=== PATIENT | male | born 1965 | race Caucasian/White ===

== ENCOUNTER 2020-04-07 04:26 | Inpatient (IN) | payer SELFPAY ==
[2020-04-07] MEDS ORDERED: HYDROmorphone 0.5 MG/0.5 ML SYRINGE ONE (04:34)
[2020-04-07 05:39] LABS: SARS-CoV-2 NAA Rapid Test Not Detected (NotDetected)
[2020-04-07] MEDS ORDERED: Fentanyl 100 MCG/2 ML VIAL ONE ×4 (06:02→08:39)
[2020-04-07] MEDS ORDERED: Phenylephrine 10 MG/ML VIAL ONE (06:23)
[2020-04-07] MEDS ORDERED: ceFOXitin 1 GM VIAL ONE (06:54)
--- NOTE | 2020-04-07 07:11 | HP ---
CHIEF COMPLAINT: Abdominal pain. HISTORY OF PRESENT ILLNESS: The patient is a 55-year-old thin white male. He is apparently a homeless person, who lives in [place]. He smokes cigarettes, smokes marijuana, and uses crack cocaine on a daily basis. He presented to the emergency room in [place] when he had onset of severe abdominal pain sometime yesterday evening. CT scan revealed evidence of free air within the left upper abdomen consistent with perforated viscus. For reasons that are not clear to me, he was transferred here (rather than facilities that are closer to [place]). He was given IV fluids, IV antibiotics, and pain medication. I am consulted. PAST MEDICAL HISTORY: He denies any significant medical history. He tells me he did take something for back pain in the past. PAST SURGICAL HISTORY: He had nasal surgery in the past. MEDICATIONS: None (he stopped taking medication for his back as he did not want to become "immune" to them). ALLERGIES: NO KNOWN DRUG ALLERGIES. PERSONAL AND SOCIAL HISTORY: He is with two children. 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 He has been homeless for many years. He does not drink alcohol. He does smoke about two packs per day of cigarettes. As mentioned, he smokes marijuana and uses crack cocaine every day. REVIEW OF SYSTEMS: Otherwise unremarkable. FAMILY HISTORY: Noncontributory. PHYSICAL EXAMINATION: VITAL SIGNS: He is afebrile. Pulse is 90 after being given IV fluid, blood pressure is somewhat hypertensive. GENERAL: A thin white male, appearing older than his stated age. He is alert and appropriate. HEAD, EYES, EARS, NOSE, AND THROAT: Unremarkable. NECK: Supple. LUNGS: Clear to auscultation. CARDIAC: Regular rate and rhythm. ABDOMEN: Rigid. He cannot tolerate any significant abdominal examination. EXTREMITIES: Unremarkable. ASSESSMENT: The patient with an acute abdomen with what appears to be a perforated viscus. Based upon his CT scan, my guess would be that he has a perforated peptic ulcer, although the exact etiology of his GI perforation is not apparent at this time. I recommend urgent exploratory laparotomy and repair. I have discussed the operation in detail with the patient as well as potential risks. He understands and is enthusiastic to proceed. Job ID: [id number]
[2020-04-07] MEDS ORDERED: SUGAMMADEX SODIUM 500 MG/5 ML VIAL ONE (07:20)
[2020-04-07] MEDS ORDERED: Fluconazole In NaCl,Iso-Osm 200 MG in Premix Bag 1 BAG IVPB SCH (07:30)
[2020-04-07] MEDS ORDERED: Promethazine HCl 25 MG/ML VIAL ONE (08:01)
[2020-04-07] MEDS ORDERED: Non-Formulary Medication 1 EACH PO PRN (08:12)
[2020-04-07] MEDS ORDERED: HYDROmorphone 2 MG/ML VIAL SLOW IVP PRN (08:15)
[2020-04-07] MEDS ORDERED: Promethazine HCl 25 MG/ML VIAL IM/IV PRN (08:15)
[2020-04-07] MEDS ORDERED: Ondansetron HCl/PF 4 MG/2 ML Vial IVP PRN (08:15)
[2020-04-07] MEDS ORDERED: Meperidine HCl/PF 25 MG/ML VIAL SLOW IVP PRN (08:15)
[2020-04-07] MEDS ORDERED: hydrALAZINE 20 MG/ML VIAL ONE (08:22)
[2020-04-07] MEDS ORDERED: Dextrose 5% in Water 1,000 ML IV PRN (09:20)
[2020-04-07] MEDS ORDERED: Dextrose 50% Abboject 50 ML SYRINGE SLOW IVP PRN (09:20)
[2020-04-07] MEDS ORDERED: Lorazepam 2 MG/ML VIAL SLOW IVP PRN (09:20)
[2020-04-07] MEDS ORDERED: Ondansetron PF 4 MG/2 ML Vial IVP PRN (09:20)
[2020-04-07] MEDS ORDERED: Promethazine HCl 25 MG/ML VIAL IM PRN (09:20)
[2020-04-07] MEDS: D5 1/2 NS w/20 mEq KCL 1,000 ML IV SCH ×2 (09:38→21:09)
[2020-04-07] MEDS: Pantoprazole 40 MG VIAL IVP SCH ×2 (09:38→21:08)
[2020-04-07 10:41] VITALS: BMI 23.3
[2020-04-07] MEDS ORDERED: Lidocaine 1% PF 5 ML VIAL ONE (10:55)
[2020-04-07] MEDS ORDERED: Rocuronium Bromide 10 MG/ML (10ML VIAL) ONE (10:55)
[2020-04-07] MEDS ORDERED: Dexamethasone 20 MG/5 ML VIAL ONE (10:55)
[2020-04-07] MEDS ORDERED: PHENYLEPHRINE-NS 100 MCG/ML 10 ML SYRINGE ONE (10:55)
[2020-04-07] MEDS ORDERED: Succinylcholine 200 MG/10 ml SYRINGE FS ONE (10:55)
[2020-04-07] MEDS ORDERED: Ondansetron PF 4 MG/2 ML Vial ONE (10:55)
[2020-04-07] MEDS ORDERED: PROPOFOL 200 MG/20 ML VIAL ONE (10:55)
[2020-04-07] MEDS: Enoxaparin Sodium 40 MG/0.4 ML SYRINGE SC SCH (21:08)
[2020-04-07] MEDS: Morphine 4 MG/ML VIAL SLOW IVP PRN (21:43)
--- NOTE | 2020-04-08 00:31 | OP ---
DATE OF PROCEDURE: 04/07/2020 PREOPERATIVE DIAGNOSIS: Gastrointestinal tract perforation. POSTOPERATIVE DIAGNOSES: Gastrointestinal tract perforation same with finding of perforated pyloric channel ulcer. ANESTHESIA: General endotracheal. PROCEDURE PERFORMED: Repair of perforated pyloric channel ulcer with omental patch. INDICATIONS: The patient is a 55-year-old white male. He regularly uses illegal drugs as well as smokes 2 packs per day of cigarettes. He presented with acute onset of abdominal pain and free air within the abdomen. He is taken to the operating room at this time for exploration. DESCRIPTION OF OPERATION: Informed consent was obtained. Patient was taken to the operating room, where general endotracheal anesthesia was obtained with patient in supine position. Abdomen was prepped with ChloraPrep and draped in sterile fashion. A midline upper abdominal incision was created and dissection was carried through skin and subcutaneous tissue and the peritoneal cavity. There was noted to be a small amount of free air, but some cloudy free fluid in the upper abdomen. Cultures were obtained. There was noted to be a perforation on the anterior aspect of the pyloric channel. The duodenum was adherent to the gallbladder and these adhesions were mobilized carefully. The defect was defined in the anterior aspect of the pyloric channel. It was repaired with 3 interrupted sutures of 3-0 silk. I then obtained an omental patch based upon the lesser omentum. This was folded over the suture repair site and secured in place with 3 additional sutures of 3-0 silk. Nasogastric tube was positioned appropriately within the stomach. The abdominal cavity was irrigated with 3 L of warm saline and all irrigant was aspirated. The fascia was closed with running suture of looped #1 PDS. The wound was copiously irrigated and all irrigant was aspirated. Skin edges were approximated with skin garett. Dry gauze dressing was placed externally. There were no complications. The patient tolerated the procedure well and was taken to recovery room in stable condition. Job ID: [id number]
[2020-04-08] MEDS: D5 1/2 NS w/20 mEq KCL 1,000 ML IV SCH ×3 (02:40→15:51)
[2020-04-08] MEDS: Morphine 4 MG/ML VIAL SLOW IVP PRN ×4 (03:53→23:19)
[2020-04-08 05:49] LABS: Anion Gap 10 mmol/L (10-20); BUN (Urea Nitrogen) 13 mg/dL (8.4-25.7); Calc. Creatinine Clearance 78 mL/min (70-130); Calcium 8.6 mg/dL (7.8-10.44); Carbon Dioxide 24 mmol/L (22-29); Chloride 103 mmol/L (98-107); Glucose 105 mg/dL (70-105); Potassium 4.2 mmol/L (3.5-5.1); Sodium 133 mmol/L (136-145)
[2020-04-08 06:12] LABS: #Lymphocytes 1.3 thou/uL (1.20-3.40); #Monocytes 0.7 thou/uL (0.11-0.59); #Neutrophils 10.5 thou/uL (1.40-6.50); %Basophils 0.3 % (0.0-1.0); %Eosinophils 0.2 % (0.0-10.0); %Monocytes 5.5 % (0.0-10.0); %Neutrophils 83.9 % (42.0-75.0); Hemoglobin 13.2 g/dL (14.0-18.0); Hypochromia SLIGHT = 6-15 cells (100X) (0-5/hpf); MDiff Complete? YES; Mean Corpuscular HGB CONC 29.9 g/dL (32.0-36.0); Mean Corpuscular Hemoglobin 29.1 pg (27.0-31.0); Mean Corpuscular Volume 97.4 fL (78.0-98.0); Mean Platelet Volume 7.2 fL (7.4-10.4); Platelet Count 239 thou/uL (130-400); Platelet Morphology Comment Appears Adequate; RBC Distribution Width 12.2 % (11.5-14.5); Red Blood Cell (RBC) Count 4.53 mill/uL (4.70-6.10); White Blood Cell (WBC) Count 12.6 thou/uL (4.8-10.8)
[2020-04-08] MEDS: Fluconazole In NaCl,Iso-Osm 200 MG in Premix Bag 1 BAG IVPB SCH (08:24)
[2020-04-08] MEDS: Pantoprazole 40 MG VIAL IVP SCH ×2 (08:25→20:26)
[2020-04-08] MEDS: hydrALAZINE 20 MG/ML VIAL SLOW IVP PRN ×2 (09:15→17:18)
[2020-04-08] MEDS ORDERED: CEFOXITIN IVPB SCH (12:00)
[2020-04-08] MEDS ORDERED: cefOXitin Sodium 1 GM in Sodium Chloride 0.9% 100 ML IVPB SCH (12:00)
[2020-04-08] MEDS: cefOXitin Sodium/Dextrose,Iso 1 GM in Premix Bag 1 BAG IVPB SCH ×3 (12:23→23:50)
[2020-04-08] MEDS: Morphine 2 MG/ML VIAL SLOW IVP PRN (12:59)
[2020-04-08] MEDS ORDERED: hydrALAZINE 20 MG/ML VIAL SLOW IVP SCH (18:30)
[2020-04-08] MEDS: Enoxaparin Sodium 40 MG/0.4 ML SYRINGE SC SCH (20:26)
[2020-04-08] MEDS ORDERED: Lorazepam 2 MG/ML VIAL SLOW IVP SCH (21:00)
[2020-04-09] MEDS: cefOXitin Sodium/Dextrose,Iso 1 GM in Premix Bag 1 BAG IVPB SCH (05:13)
[2020-04-09] MEDS: D5 1/2 NS w/20 mEq KCL 1,000 ML IV SCH ×2 (05:14→11:31)
--- NOTE | 2020-04-09 06:23 | PRG ---
DATE OF SERVICE: 04/08/2020 SUBJECTIVE: Mr. Mora is postoperative day #1, following laparotomy and repair of perforated pyloric channel ulcer. He is resting in bed on the surgical floor. Nasogastric tube is in place and functioning appropriately. The patient complains of appropriate abdominal pain. He has not ambulated significantly in the samson yet. He shows early signs of agitation this morning (on April 08), but is not disoriented. PHYSICAL EXAMINATION: VITAL SIGNS: He is afebrile. Pulse is slightly elevated at around 100. Blood pressure remains elevated at about 160/100. LUNGS: Clear to auscultation. ABDOMEN: His abdominal dressing is intact. Bowel sounds are not appreciated. He has appropriate abdominal tenderness. LABORATORY DATA: CBC showed hemoglobin of 13.2 with white blood cell count of 12.6. Electrolytes were unremarkable. ASSESSMENT: The patient is stable following repair of perforated ulcer. I would like to leave the nasogastric tube in because he has evidence of persistent ileus, which is not surprising. Hopefully, we will be able to remove this tomorrow. I have encouraged him to ambulate. He can continue to take ice chips. I am also concerned regarding his mental status as he has a history of daily cocaine use as well as cigarette abuse and marijuana use. Job ID: [id number]
[2020-04-09 07:37] LABS: Mean Corpuscular Hemoglobin 32.5 pg (27.0-31.0); Mean Corpuscular Volume 95.6 fL (78.0-98.0); Mean Platelet Volume 6.7 fL (7.4-10.4); Platelet Count 243 thou/uL (130-400); Red Blood Cell (RBC) Count 4.62 mill/uL (4.70-6.10)
[2020-04-09 07:55] LABS: Anion Gap 14 mmol/L (10-20); BUN (Urea Nitrogen) 10 mg/dL (8.4-25.7); Calc. Creatinine Clearance 78 mL/min (70-130); Calcium 8.9 mg/dL (7.8-10.44); Carbon Dioxide 21 mmol/L (22-29); Chloride 100 mmol/L (98-107); Glucose 112 mg/dL (70-105); Potassium 4.1 mmol/L (3.5-5.1); Sodium 131 mmol/L (136-145)
[2020-04-09 08:14] LABS: Band 28 % (5-11); Lymphocytes 1 % (21-51); MDiff Complete? YES; Monocytes 3 % (0-10); Neutrophil 66 % (42-75); Platelet Morphology Comment Appears Adequate; Polychromasia SLIGHT = 2-3 cells (100X) (0-2/hpf); Reactive Lymphocytes 2 % (0-10); Small Platelets SLIGHT
[2020-04-09] MEDS: Ziprasidone 20 MG CAP PO SCH ×2 (09:24→20:13)
[2020-04-09] MEDS: Pantoprazole 40 MG VIAL IVP SCH ×2 (09:25→20:14)
[2020-04-09] MEDS: Fluconazole In NaCl,Iso-Osm 200 MG in Premix Bag 1 BAG IVPB SCH (09:25)
[2020-04-09 10:22] LABS: Hemoglobin A1c 5.2 % (4.0-6.0)
[2020-04-09] MEDS: Propranolol 40 MG TAB PO SCH ×2 (10:25→20:14)
[2020-04-09] MEDS: Folic Acid 1 MG TAB PO SCH (10:25)
[2020-04-09] MEDS: Thiamine 100 MG TAB PO SCH (10:25)
[2020-04-09 10:26] LABS: Acetaminophen Less than 6.0 mcg/mL (10.0-30.0); Alcohol Less than 10 mg/dL (Less than 10); Cardiac Risk 3.1 (Less than 4.5); Cholesterol 116 mg/dl (< 200 Desired); HDL Cholesterol 38 mg/dL (>60 Neg Risk); LDL Cholesterol, Calculated 64 mg/dL; Salicylate Less than 8.0 mg/dL (15.0-30.0); Triglycerides 70 mg/dL (Less than 150)
[2020-04-09] MEDS: metroNIDAZOLE 500 MG in Premix Bag 1 BAG IVPB SCH ×2 (11:31→18:33)
--- NOTE | 2020-04-09 11:46 | CON ---
DATE OF CONSULTATION: 04/09/2020 REASON FOR CONSULTATION: Medical management. HISTORY OF PRESENT ILLNESS: This is a 55-year-old gentleman, who looks malnourished and also a homeless person in [place] with extensive past medical history of tobacco abuse, crack cocaine and marijuana drug abuse, was brought to the emergency room because of complaints of abdominal pain where he was evaluated with a CT of the abdomen showing evidence of free air within the left upper abdomen consistent with a perforated viscus. The patient was transferred to [place] for evaluation of this and was taken to [facility] on 04/07/2020, where the patient was found to have a perforated pyloric channel ulcer and this was eventually repaired with an omental patch. Postsurgically, the patient did well, though he was sick-looking with a hemoglobin being stable. No current complaints of chest pain, shortness of breath, fever, rigors, chills, nausea, vomiting, diaphoresis, blurring of vision, tingling, numbness, burning micturition, constipation, claudication, anxiety, depression, hematuria, hematochezia, cough, expectoration, syncope, seizures, PND, or orthopnea has been noted at this point of time. The patient has extensive medical noncompliance and is a homeless person and no prior history or follow ups or any other documentation in regard to his health are available and according to the patient not present. PAST MEDICAL HISTORY: Drug abuse. SOCIAL HISTORY: Patient smokes tobacco cigarettes almost one to two packs a day for many years. Abuses crack cocaine and marijuana . I presume the patient also abuses extensive alcohol. SURGERIES: Status post duodenal ulcer omental patch repair. FAMILY HISTORY: Unavailable. VACCINATION HISTORY: Unavailable. REVIEW OF SYSTEMS: Except as documented, all systems reviewed and negative. PHYSICAL EXAMINATION: GENERAL: This is a 55-year-old male gentleman lying in his hospital bed. The patient is alert, oriented, complaining of a postsurgical pain. Has an airway, which is clear. VITAL SIGNS: Currently has a temperature of 100 degrees Fahrenheit, heart rate of 104 per minute, respiratory rate of 18 per minute, saturation 97% on 4 L of oxygen, blood pressure 130/79 mmHg. HEENT: Atraumatic, normocephalic. NECK: Supple. No bruit. No lymphadenopathy. CVS: S1, S2. No abnormal rhythms or murmurs. Sinus tachycardia noted. CHEST: Bilateral air entry present. No rhonchi. No wheeze. ABDOMEN: Soft, has postsurgical bandage. EXTREMITIES: No cyanosis, no icterus, no pallor. No edema. NEUROLOGIC: The patient is alert, oriented x3. No focal motor or sensory deficits noted heme no ecchymosis or petechiae psych no depression or anxiety noted. DIAGNOSTICS: WBC is 13.0, hemoglobin 15.0, hematocrit 44.2, platelets are 243. Sodium 131, potassium 4.1, chloride 100, carbon dioxide 21, BUN 10, creatinine 0.95, glucose 112. COVID-19 rapid testing negative. Blood cultures, no growth noted from abdominal fluid. ASSESSMENT: 1. Acute abdominal pain with a diagnosis of duodenal ulcer perforation, status post omental patch repair by Dr. Kramer. The patient currently has postsurgical care. Awaiting bowel function return. 2. Extensive drug abuse with marijuana as well as crack cocaine, have authorized for blood drug screen at this point of time. 3. Likely suspected sepsis, intraabdominal in origin. I will start the patient on IV Zosyn for broader spectrum of coverage as well as Flagyl at this point of time and closely monitor. 4. Alcohol abuse. I have started the patient on folic acid and thiamine with continuation of IV fluids. 5. Intractable nausea and vomiting. 6. Medical noncompliance. PLAN: Discussed in detail of the diagnosis, treatment, and followup with the patient. I reviewed with [facility] at this point of time. We will do a CBC, CMP evaluation. We will discontinue current antibiotics and start the patient on a broad-spectrum antibiotic to include Zosyn and add Flagyl to the patient's antibiotic regimen. The patient is a very sick looking gentleman at this point of time with history of medical noncompliance and secondary to intraabdominal surgery and infection. I will obtain blood cultures for further review. I will also do blood drug screen for the patient and await official review. I will also order an echocardiogram evaluation including ordering lipid panel and hemoglobin A1c. Discharge planning will depend on ruling out sepsis along with reviewing echocardiogram and clearance from [facility]. I thank Dr. Kramer for referring the patient to the hospitalist team for medical management. We will follow the patient along with you. Advance directives are full code. The patient's family members phone data are not available, working on that with social services designee at this point of time. Job ID: [id number] [facility]
[2020-04-09] MEDS: Piperacillin/Tazobactam 4.5 GM in Sodium Chloride 0.9% 100 ML IVPB SCH ×3 (12:45→23:43)
[2020-04-09] MEDS: Nicotine 21 MG PATCH TD SCH (17:56)
[2020-04-09] MEDS: Enoxaparin Sodium 40 MG/0.4 ML SYRINGE SC SCH (20:13)
[2020-04-10] MEDS: D5 1/2 NS w/20 mEq KCL 1,000 ML IV SCH ×3 (02:55→11:45)
[2020-04-10] MEDS: metroNIDAZOLE 500 MG in Premix Bag 1 BAG IVPB SCH ×3 (02:55→18:39)
[2020-04-10] MEDS: Morphine 2 MG/ML VIAL SLOW IVP PRN (02:56)
[2020-04-10 05:24] LABS: #Basophils 0.1 thou/uL (0.0-0.2); #Eosinphils 0.3 thou/uL (0.0-0.7); #Lymphocytes 1.1 thou/uL (1.20-3.40); #Monocytes 0.5 thou/uL (0.11-0.59); #Neutrophils 8.2 thou/uL (1.40-6.50); %Basophils 0.8 % (0.0-1.0); %Eosinophils 3.2 % (0.0-10.0); %Monocytes 5.3 % (0.0-10.0); %Neutrophils 79.8 % (42.0-75.0); Hemoglobin 13.5 g/dL (14.0-18.0); Mean Corpuscular HGB CONC 33.7 g/dL (32.0-36.0); Mean Corpuscular Hemoglobin 32.5 pg (27.0-31.0); Mean Corpuscular Volume 96.5 fL (78.0-98.0); Mean Platelet Volume 7.2 fL (7.4-10.4); Platelet Count 274 thou/uL (130-400); Red Blood Cell (RBC) Count 4.16 mill/uL (4.70-6.10); White Blood Cell (WBC) Count 10.3 thou/uL (4.8-10.8)
[2020-04-10 05:27] LABS: ALT (SGPT) 10 U/L (8-55); AST (SGOT) 16 U/L (5-34); Albumin 3.4 g/dL (3.5-5.0); Alkaline Phosphatase 50 U/L (40-110); Anion Gap 12 mmol/L (10-20); BUN (Urea Nitrogen) 21 mg/dL (8.4-25.7); Bilirubin, Total 0.7 mg/dL (0.2-1.2); Calc. Creatinine Clearance 67 mL/min (70-130); Calcium 8.9 mg/dL (7.8-10.44); Carbon Dioxide 22 mmol/L (22-29); Chloride 104 mmol/L (98-107); Globulin 3.1 g/dL (2.4-3.5); Glucose 98 mg/dL (70-105); Potassium 3.9 mmol/L (3.5-5.1); Protein, Total 6.5 g/dL (6.0-8.3); Sodium 134 mmol/L (136-145)
[2020-04-10] MEDS: Piperacillin/Tazobactam 4.5 GM in Sodium Chloride 0.9% 100 ML IVPB SCH ×5 (05:49→23:22)
[2020-04-10] MEDS: Fluconazole In NaCl,Iso-Osm 200 MG in Premix Bag 1 BAG IVPB SCH (09:28)
[2020-04-10] MEDS: Ziprasidone 20 MG CAP PO SCH ×2 (09:29→20:24)
[2020-04-10] MEDS: Propranolol 40 MG TAB PO SCH ×2 (09:29→20:23)
[2020-04-10] MEDS: Pantoprazole 40 MG VIAL IVP SCH ×2 (09:29→20:24)
[2020-04-10] MEDS: Folic Acid 1 MG TAB PO SCH (09:30)
[2020-04-10] MEDS: Thiamine 100 MG TAB PO SCH (09:30)
--- NOTE | 2020-04-10 14:54 | PDOC.HOSPP ---
- Subjective Encounter Date: 04/10/20 Encounter Time: 14:52 Subjective: Mr. Mora was seen today in follow-up of duodenal ulcer with perforation. He does not have any complaints. He denies abdominal pain, He says he wants to try some solid food. - Objective Vital Signs & Weight: Vital Signs (12 hours) Temp Pulse Resp BP Pulse Ox 04/10/20 11:16 97.4 F L 62 18 124/80 96 04/10/20 07:51 97.6 F 78 16 145/95 H 95 04/10/20 07:11 85 16 96 04/10/20 05:00 95 04/10/20 02:59 70 16 96 04/10/20 02:53 97.7 F 76 18 118/68 89 L Weight Weight 140 lb I&O: 04/09/20 04/10/20 04/11/20 06:59 06:59 06:59 Intake Total 1860 1680 Output Total 3100 1400 Balance -1240 280 Result Diagrams: 04/10/20 04:44 04/10/20 04:44 Hospitalist ROS - Medication Medications: Active Medications Generic Name Dose Route Start Last Admin Trade Name Freq PRN Reason Stop Dose Admin Albuterol/Ipratropium 3 ml 04/07/20 12:30 04/10/20 12:30 Ipratropium/Albuterol Sulfate 3 Ml Neb NEB 3 ml TID-RT MINOR Administration Enoxaparin Sodium 40 mg 04/07/20 21:00 04/09/20 20:13 Enoxaparin Sodium 40 Mg/0.4 Ml Syringe SC 40 mg 2100 MINOR Administration Folic Acid 1 mg 04/09/20 09:00 04/10/20 09:30 Folic Acid 1 Mg Tab PO 1 mg DAILY MINOR Administration Hydralazine HCl 10 mg 04/07/20 09:20 04/08/20 17:18 Hydralazine 20 Mg/Ml Vial SLOW IVP 10 mg Q4H PRN Administration SBP > 170 or DBP > 100 Potassium Chloride/Dextrose/Sod Cl 1,000 mls @ 120 mls/hr 04/07/20 09:20 04/10/20 11:45 D5 1/2 Ns W/20 Meq Kcl IV 1,000 mls .Q8H20M MINOR Administration Fluconazole/Sodium Chloride 100 mls @ 100 mls/hr 04/08/20 09:00 04/10/20 09:28 200 mg/ Device IVPB 100 mls DAILY MINOR Administration Piperacillin Sod/Tazobactam 100 mls @ 200 mls/hr 04/09/20 12:00 04/10/20 12:45 Sod 4.5 gm/ Sodium Chloride IVPB 100 mls Q6HR MINOR Administration Metronidazole 500 mg/ Device 100 mls @ 100 mls/hr 04/09/20 11:00 04/10/20 11:41 IVPB 100 mls 0300,1100,1900 MINOR Administration Lorazepam 2 mg 04/07/20 09:20 04/08/20 15:51 Lorazepam 2 Mg/Ml Vial SLOW IVP 2 mg Q6H PRN Administration Anxiety/Agitation Morphine Sulfate 2 mg 04/07/20 09:20 04/10/20 02:56 Morphine 2 Mg/Ml Vial SLOW IVP 2 mg Q2H PRN Administration Mild Pain (1-3) Morphine Sulfate 4 mg 04/07/20 09:20 04/08/20 23:19 Morphine 4 Mg/Ml Vial SLOW IVP 4 mg Q2H PRN Administration Moderate Pain (4-6) Nicotine 21 mg 04/09/20 18:00 04/09/20 17:56 Nicotine 21 Mg Patch TD 21 mg 1800 MINOR Administration Pantoprazole Sodium 40 mg 04/07/20 09:00 04/10/20 09:29 Pantoprazole 40 Mg Vial IVP 40 mg Q12HR MINOR Administration Propranolol HCl 40 mg 04/09/20 09:00 04/10/20 09:29 Propranolol 40 Mg Tab PO 40 mg BID MINOR Administration Sodium Chloride 10 ml 04/07/20 09:00 04/10/20 09:30 Flush - Normal Saline 10 Ml Syringe IVF 10 ml Q12HR MINOR Administration Thiamine HCl 100 mg 04/09/20 09:00 04/10/20 09:30 Thiamine 100 Mg Tab PO 100 mg DAILY MINOR Administration Ziprasidone 40 mg 04/09/20 09:00 04/10/20 09:29 Ziprasidone 20 Mg Cap PO 40 mg BID MINOR Administration Hospitalist Exam Vitals: Vital Signs (12 hours) Temp Pulse Resp BP Pulse Ox 04/10/20 11:16 97.4 F L 62 18 124/80 96 04/10/20 07:51 97.6 F 78 16 145/95 H 95 04/10/20 07:11 85 16 96 04/10/20 05:00 95 04/10/20 02:59 70 16 96 04/10/20 02:53 97.7 F 76 18 118/68 89 L Weight Weight 140 lb General Appearance: NAD, awake alert, ill appearing General - other findings: very thin and frail Eye: PERRL, anicteric sclera ENT: normocephalic atraumatic, no oropharyngeal lesions Heart: RRR, no murmur, no gallops, no rubs, normal peripheral pulses Respiratory: CTAB, no wheezes, no rales, no ronchi, normal chest expansion, no tachypnea, normal percussion Gastrointestinal: soft, non-tender, non-distended (bowel sounds are quiet), no guarding, no rigidity Extremities: no cyanosis, no edema Hosp A/P (1) Duodenal ulcer, perforated Code(s): K26.5 - CHRONIC OR UNSPECIFIED DUODENAL ULCER WITH PERFORATION Status: Acute (2) Polysubstance abuse Code(s): F19.10 - OTHER PSYCHOACTIVE SUBSTANCE ABUSE, UNCOMPLICATED Status: Acute (3) Peritonitis Code(s): K65.9 - PERITONITIS, UNSPECIFIED Status: Acute - Plan * Duodenal ulcer with perforation- he is s/p repair of the ulcer, with Omental patch * Continue Protonix * Peritonitis- continue Zosyn, Flagyl, and Diflucan * Polysubstance abuse- CM consult has been placed, and discharge planning is in progress
--- NOTE | 2020-04-10 15:38 | PRG ---
DATE OF SERVICE: 04/10/2020 SUBJECTIVE: Mr. Mora is postoperative day #3 from laparotomy and repair of pyloric channel ulcer. Yesterday, he was becoming agitated. He was very tachycardic and confused. I suspected that he had cocaine withdrawal. I started him on Geodon to help with his agitation and confusion and propranolol. His tachycardia has resolved and his heart rate today is in the 60s to 80s. Blood pressure is currently 124/80. I also started him on a nicotine patch as he is a habitual 2 pack-a-day smoker. Today, he is much more lucid, calm, and interactive. He seems to feel better. He also has bowel sounds and had a bowel movement today. I therefore start him on a clear liquid diet. OBJECTIVE: VITAL SIGNS: On examination today, he is afebrile, pulse 62, blood pressure 124/80. LUNGS: Clear to auscultation. ABDOMEN: Soft and minimally tender. He still has peng in his upper midline incision. Bowel sounds are present and appear to be normoactive. LABORATORY DATA: His hemoglobin is stable at 13.5, white blood cell count is down to normal at 10.3. His chemistry panel reveals normal electrolytes. His albumin is a little bit low at 3.4. His serology does reveal elevated H pylori IgG antibody. This will need to be addressed after discharge. ASSESSMENT AND PLAN: He is doing well following surgery. I will advance him to a clear liquid diet today. I anticipate he will be able to advance to a full liquid diet tomorrow. Once he is tolerating this, he had to be able to be discharged to home. His peng should be removed tomorrow when he is postoperative day #4. Unfortunately, he is homeless. I am uncertain what discharge planning will look like for him. We need to discharge him to some sort of a temporary facility, then this may need to be delayed until Monday (today is Monday). Dr. Perez will be covering for me over the weekend. Job ID: [id number]
[2020-04-10] MEDS: Nicotine 21 MG PATCH TD SCH (18:39)
[2020-04-10] MEDS: Enoxaparin Sodium 40 MG/0.4 ML SYRINGE SC SCH (20:23)
[2020-04-11] MEDS ORDERED: Lorazepam 2 MG/ML VIAL IM PRN ×2 (00:02→00:18)
[2020-04-11] MEDS: D5 1/2 NS w/20 mEq KCL 1,000 ML IV SCH ×3 (00:15→08:19)
[2020-04-11] MEDS: metroNIDAZOLE 500 MG in Premix Bag 1 BAG IVPB SCH (03:32)
[2020-04-11] MEDS: Piperacillin/Tazobactam 4.5 GM in Sodium Chloride 0.9% 100 ML IVPB SCH (05:31)
[2020-04-11] MEDS: Doxycycline 100 MG CAP PO SCH ×2 (08:54→20:12)
[2020-04-11] MEDS: Thiamine 100 MG TAB PO SCH (08:54)
[2020-04-11] MEDS: Folic Acid 1 MG TAB PO SCH (08:54)
[2020-04-11] MEDS: Fluconazole 100 MG TAB PO SCH (08:54)
[2020-04-11] MEDS: Ziprasidone 20 MG CAP PO SCH ×2 (08:55→20:12)
[2020-04-11] MEDS: Propranolol 40 MG TAB PO SCH ×2 (08:55→20:12)
--- NOTE | 2020-04-11 11:27 | PRG ---
DATE OF SERVICE: 04/11/2020 SUBJECTIVE: Earlier this morning, the patient left against medical advice. However, about an hour later he came back up, because it was cold. Currently, he is not in his room. I cannot evaluate him. Somebody said he might be down the lobby looking for cigarettes. I do not know where he is. Apparently, he is afebrile, pulse 80, blood pressure 153/93. I cannot do a physical exam, but the nurse reports that the he had a bowel movement and he is tolerating full liquids, so I am not sure, if he still in the hospital or if he has left AMA again. Job ID: [id number]
--- NOTE | 2020-04-11 16:53 | PDOC.HOSPP ---
- Subjective Encounter Date: 04/11/20 Encounter Time: 16:51 Subjective: Mr. Mora was seen today in follow-up of perforated duodenal ulcer, post repair. He is now back in his room. He notes some soreness in his abdomen when he lays on the left side. He did not have any trouble eating a full liquid diet, and wants to try something more solid. - Objective Vital Signs & Weight: Vital Signs (12 hours) Temp Pulse Resp BP Pulse Ox 04/11/20 16:00 99 04/11/20 13:45 80 20 100 04/11/20 12:00 95 04/11/20 11:27 97.5 F L 81 16 151/100 H 95 04/11/20 10:30 97.6 F 76 20 159/95 H 87 L 04/11/20 07:13 80 18 98 Weight Weight 140 lb I&O: 04/10/20 04/11/20 04/12/20 06:59 06:59 06:59 Intake Total 1680 3180 Output Total 1400 Balance 280 3180 Result Diagrams: 04/10/20 04:44 04/10/20 04:44 Hospitalist ROS - Medication Medications: Active Medications Generic Name Dose Route Start Last Admin Trade Name Freq PRN Reason Stop Dose Admin Albuterol/Ipratropium 3 ml 04/07/20 12:30 04/11/20 13:45 Ipratropium/Albuterol Sulfate 3 Ml Neb NEB 3 ml TID-RT MINOR Administration Doxycycline Hyclate 100 mg 04/11/20 09:00 04/11/20 08:54 Doxycycline 100 Mg Cap PO 100 mg BID MINOR Administration Enoxaparin Sodium 40 mg 04/07/20 21:00 04/10/20 20:23 Enoxaparin Sodium 40 Mg/0.4 Ml Syringe SC 40 mg 2100 MINOR Administration Fluconazole 200 mg 04/11/20 09:00 04/11/20 08:54 Fluconazole 100 Mg Tab PO 200 mg DAILY MINOR Administration Folic Acid 1 mg 04/09/20 09:00 04/11/20 08:54 Folic Acid 1 Mg Tab PO 1 mg DAILY MINOR Administration Hydralazine HCl 10 mg 04/07/20 09:20 04/08/20 17:18 Hydralazine 20 Mg/Ml Vial SLOW IVP 10 mg Q4H PRN Administration SBP > 170 or DBP > 100 Potassium Chloride/Dextrose/Sod Cl 1,000 mls @ 50 mls/hr 04/11/20 07:00 04/11/20 08:19 D5 1/2 Ns W/20 Meq Kcl IV Not Given .Q20H MINOR Lorazepam 2 mg 04/07/20 09:20 04/08/20 15:51 Lorazepam 2 Mg/Ml Vial SLOW IVP 2 mg Q6H PRN Administration Anxiety/Agitation Morphine Sulfate 2 mg 04/07/20 09:20 04/10/20 02:56 Morphine 2 Mg/Ml Vial SLOW IVP 2 mg Q2H PRN Administration Mild Pain (1-3) Morphine Sulfate 4 mg 04/07/20 09:20 04/08/20 23:19 Morphine 4 Mg/Ml Vial SLOW IVP 4 mg Q2H PRN Administration Moderate Pain (4-6) Nicotine 21 mg 04/09/20 18:00 04/10/20 18:39 Nicotine 21 Mg Patch TD Not Given 1800 [facility] Pantoprazole Sodium 40 mg 04/11/20 09:00 04/11/20 08:55 Pantoprazole 40 Mg Tab PO 40 mg DAILY MINOR Administration Propranolol HCl 40 mg 04/09/20 09:00 04/11/20 08:55 Propranolol 40 Mg Tab PO 40 mg BID MINOR Administration Sodium Chloride 10 ml 04/07/20 09:00 04/11/20 10:09 Flush - Normal Saline 10 Ml Syringe IVF Not Given Q12HR [facility] Thiamine HCl 100 mg 04/09/20 09:00 04/11/20 08:54 Thiamine 100 Mg Tab PO 100 mg DAILY MINOR Administration Ziprasidone 40 mg 04/09/20 09:00 04/11/20 08:55 Ziprasidone 20 Mg Cap PO 40 mg BID MINOR Administration Hospitalist Exam Vitals: Vital Signs (12 hours) Temp Pulse Resp BP Pulse Ox 04/11/20 16:00 99 04/11/20 13:45 80 20 100 04/11/20 12:00 95 04/11/20 11:27 97.5 F L 81 16 151/100 H 95 04/11/20 10:30 97.6 F 76 20 159/95 H 87 L 04/11/20 07:13 80 18 98 Weight Weight 140 lb Eye: PERRL, anicteric sclera Heart: RRR, no murmur, no gallops, no rubs Respiratory: CTAB, no wheezes, no rales, no ronchi, normal chest expansion, no tachypnea, normal percussion Gastrointestinal: soft, non-tender, non-distended, normal bowel sounds, no palpable masses, no hepatomegaly Extremities: no cyanosis, no edema Hosp A/P (1) Duodenal ulcer, perforated Code(s): K26.5 - CHRONIC OR UNSPECIFIED DUODENAL ULCER WITH PERFORATION Status: Acute (2) Polysubstance abuse Code(s): F19.10 - OTHER PSYCHOACTIVE SUBSTANCE ABUSE, UNCOMPLICATED Status: Acute (3) Peritonitis Code(s): K65.9 - PERITONITIS, UNSPECIFIED Status: Acute - Plan * Duodenal ulcer with perforation- he is s/p repair of the ulcer, with Omental patch * Continue Protonix * His diet has been advanced to a solid diet * Peritonitis- continue Zosyn, Flagyl, and Diflucan * Polysubstance abuse- CM consult has been placed, and discharge planning is in progress * Patient left the hospital, but returned, due to the dangerously cold temperatures outside. He is homeless, and will await Case Management help to see what his options are, which may be limited.
[2020-04-11] MEDS: Nicotine 21 MG PATCH TD SCH (17:05)
[2020-04-11] MEDS: Enoxaparin Sodium 40 MG/0.4 ML SYRINGE SC SCH (20:12)
[2020-04-12] MEDS: D5 1/2 NS w/20 mEq KCL 1,000 ML IV SCH ×2 (03:09→23:15)
[2020-04-12] MEDS: Fluconazole 100 MG TAB PO SCH (07:28)
[2020-04-12] MEDS: Doxycycline 100 MG CAP PO SCH ×2 (07:28→20:22)
[2020-04-12] MEDS: Propranolol 40 MG TAB PO SCH ×2 (07:29→20:22)
[2020-04-12] MEDS: Ziprasidone 20 MG CAP PO SCH ×2 (07:29→20:22)
[2020-04-12] MEDS: Thiamine 100 MG TAB PO SCH (07:29)
[2020-04-12] MEDS: Folic Acid 1 MG TAB PO SCH (07:29)
[2020-04-12 08:37] LABS: #Basophils 0.1 thou/uL (0.0-0.2); #Eosinphils 0.4 thou/uL (0.0-0.7); #Lymphocytes 1.6 thou/uL (1.20-3.40); #Monocytes 0.3 thou/uL (0.11-0.59); %Basophils 0.8 % (0.0-1.0); %Eosinophils 6.2 % (0.0-10.0); %Lymphocytes 25.1 % (21.0-51.0); %Monocytes 4.4 % (0.0-10.0); %Neutrophils 63.5 % (42.0-75.0); Mean Corpuscular HGB CONC 34.4 g/dL (32.0-36.0); Mean Corpuscular Hemoglobin 33.4 pg (27.0-31.0); Mean Platelet Volume 6.5 fL (7.4-10.4); Platelet Count 319 thou/uL (130-400); RBC Distribution Width 11.8 % (11.5-14.5); Red Blood Cell (RBC) Count 4.19 mill/uL (4.70-6.10); White Blood Cell (WBC) Count 6.4 thou/uL (4.8-10.8)
[2020-04-12] MEDS: NIFEdipine XL 60 MG TAB PO SCH (08:45)
[2020-04-12 08:53] LABS: Anion Gap 13 mmol/L (10-20); BUN (Urea Nitrogen) 13 mg/dL (8.4-25.7); Calc. Creatinine Clearance 88 mL/min (70-130); Calcium 8.7 mg/dL (7.8-10.44); Carbon Dioxide 23 mmol/L (22-29); Chloride 104 mmol/L (98-107); Glucose 191 mg/dL (70-105); Potassium 3.4 mmol/L (3.5-5.1); Sodium 137 mmol/L (136-145)
--- NOTE | 2020-04-12 10:12 | PRG ---
DATE OF SERVICE: 04/12/2020 SUBJECTIVE: The patient is doing well. He is back in his room today. He has decided to stay. We are waiting to try and get him a place to stay as he is homeless and the temperatures outside are below freezing. The [facility] will not take him because he had a positive drug screen. He is doing fine medically. He is tolerating the diet. His bowels are functioning well. OBJECTIVE: VITAL SIGNS: He is afebrile. Pulse is 75, blood pressure 164/125. GENERAL: He looks good. ABDOMEN: Soft, nondistended. The incision is healing well. The peng were removed and redressed. ASSESSMENT: Doing well. PLAN: [employer] [employer] to try and get him placement. Job ID: [id number]
--- NOTE | 2020-04-12 15:54 | PDOC.HOSPP ---
- Subjective Encounter Date: 04/12/20 Encounter Time: 15:53 Subjective: Mr. Mora was seen today in follow-up of duodenal ulcer with perforation. He is tolerating a solid diet. He does not have any complaints. - Objective Vital Signs & Weight: Vital Signs (12 hours) Temp Pulse Resp BP Pulse Ox 04/12/20 15:27 97.6 F 79 16 151/96 H 95 04/12/20 13:16 76 20 98 04/12/20 11:11 98.7 F 66 16 164/97 H 98 04/12/20 10:29 98.4 F 77 18 152/85 H 100 04/12/20 08:45 75 04/12/20 08:00 97 04/12/20 07:16 97.6 F 75 16 164/125 H 97 04/12/20 07:01 83 18 99 Weight Weight 140 lb I&O: 04/11/20 04/12/20 04/13/20 06:59 06:59 06:59 Intake Total 3180 1210 Balance 3180 1210 Result Diagrams: 04/12/20 08:28 04/12/20 08:28 Hospitalist ROS - Medication Medications: Active Medications Generic Name Dose Route Start Last Admin Trade Name Freq PRN Reason Stop Dose Admin Albuterol/Ipratropium 3 ml 04/07/20 12:30 04/12/20 13:16 Ipratropium/Albuterol Sulfate 3 Ml Neb NEB 3 ml TID-RT MINOR Administration Doxycycline Hyclate 100 mg 04/11/20 09:00 04/12/20 07:28 Doxycycline 100 Mg Cap PO 100 mg BID MINOR Administration Enoxaparin Sodium 40 mg 04/07/20 21:00 04/11/20 20:12 Enoxaparin Sodium 40 Mg/0.4 Ml Syringe SC 40 mg 2100 MINOR Administration Fluconazole 200 mg 04/11/20 09:00 04/12/20 07:28 Fluconazole 100 Mg Tab PO 200 mg DAILY MINOR Administration Folic Acid 1 mg 04/09/20 09:00 04/12/20 07:29 Folic Acid 1 Mg Tab PO 1 mg DAILY MINOR Administration Hydralazine HCl 10 mg 04/07/20 09:20 04/08/20 17:18 Hydralazine 20 Mg/Ml Vial SLOW IVP 10 mg Q4H PRN Administration SBP > 170 or DBP > 100 Potassium Chloride/Dextrose/Sod Cl 1,000 mls @ 50 mls/hr 04/11/20 07:00 04/12/20 03:09 D5 1/2 Ns W/20 Meq Kcl IV Not Given .Q20H MINOR Lorazepam 2 mg 04/07/20 09:20 04/08/20 15:51 Lorazepam 2 Mg/Ml Vial SLOW IVP 2 mg Q6H PRN Administration Anxiety/Agitation Morphine Sulfate 2 mg 04/07/20 09:20 04/10/20 02:56 Morphine 2 Mg/Ml Vial SLOW IVP 2 mg Q2H PRN Administration Mild Pain (1-3) Morphine Sulfate 4 mg 04/07/20 09:20 04/08/20 23:19 Morphine 4 Mg/Ml Vial SLOW IVP 4 mg Q2H PRN Administration Moderate Pain (4-6) Nicotine 21 mg 04/09/20 18:00 04/11/20 17:05 Nicotine 21 Mg Patch TD Not Given 1800 MINOR Nifedipine 60 mg 04/12/20 09:00 04/12/20 08:45 Nifedipine Xl 60 Mg Tab PO 60 mg DAILY MINOR Administration Pantoprazole Sodium 40 mg 04/11/20 09:00 04/12/20 07:28 Pantoprazole 40 Mg Tab PO 40 mg DAILY MINOR Administration Propranolol HCl 40 mg 04/09/20 09:00 04/12/20 07:29 Propranolol 40 Mg Tab PO 40 mg BID MINOR Administration Sodium Chloride 10 ml 04/07/20 09:00 04/12/20 07:29 Flush - Normal Saline 10 Ml Syringe IVF Not Given Q12HR MINOR Thiamine HCl 100 mg 04/09/20 09:00 04/12/20 07:29 Thiamine 100 Mg Tab PO 100 mg DAILY MINOR Administration Ziprasidone 40 mg 04/09/20 09:00 04/12/20 07:29 Ziprasidone 20 Mg Cap PO 40 mg BID MINOR Administration Hospitalist Exam Vitals: Vital Signs (12 hours) Temp Pulse Resp BP Pulse Ox 04/12/20 15:27 97.6 F 79 16 151/96 H 95 04/12/20 13:16 76 20 98 04/12/20 11:11 98.7 F 66 16 164/97 H 98 04/12/20 10:29 98.4 F 77 18 152/85 H 100 04/12/20 08:45 75 04/12/20 08:00 97 04/12/20 07:16 97.6 F 75 16 164/125 H 97 04/12/20 07:01 83 18 99 Weight Weight 140 lb Eye: PERRL, anicteric sclera Heart: RRR, no murmur, no gallops, no rubs, normal peripheral pulses Respiratory: CTAB, no wheezes, no rales, no ronchi, normal chest expansion, no tachypnea, normal percussion Gastrointestinal: soft, non-tender, non-distended, normal bowel sounds, no palpable masses, no hepatomegaly Extremities: no cyanosis, no edema Hosp A/P (1) Duodenal ulcer, perforated Code(s): K26.5 - CHRONIC OR UNSPECIFIED DUODENAL ULCER WITH PERFORATION Status: Acute (2) Polysubstance abuse Code(s): F19.10 - OTHER PSYCHOACTIVE SUBSTANCE ABUSE, UNCOMPLICATED Status: Ac frannie (3) Peritonitis Code(s): K65.9 - PERITONITIS, UNSPECIFIED Status: Acute - Plan * Duodenal ulcer with perforation- he is s/p repair of the ulcer, with Omental patch * Continue Protonix * His diet has been advanced to a solid diet * Peritonitis- continue Zosyn, Flagyl, and Diflucan * Polysubstance abuse * Continue to monitor in the hospital until the safest possible placement can be arranged
[2020-04-12] MEDS: Nicotine 21 MG PATCH TD SCH (18:10)
[2020-04-12] MEDS ORDERED: traMADol HCl 50 MG TAB PO PRN ×2 (18:54)
[2020-04-12] MEDS: Enoxaparin Sodium 40 MG/0.4 ML SYRINGE SC SCH (20:22)
[2020-04-13] MEDS ORDERED: Folic Acid 1 MG TAB ONE (08:25)
[2020-04-13] MEDS ORDERED: Fluconazole 100 MG TAB ONE (08:25)
[2020-04-13] MEDS ORDERED: Ziprasidone 20 MG CAP ONE (08:26)
[2020-04-13] MEDS ORDERED: Thiamine 100 MG TAB ONE (08:27)
[2020-04-13] MEDS ORDERED: NIFEdipine XL 60 MG TAB ONE (08:46)
[2020-04-13] MEDS ORDERED: Oxazepam 10 MG CAP ONE (08:47)
[2020-04-13] MEDS: Ziprasidone 20 MG CAP PO SCH ×2 (08:54→21:23)
[2020-04-13] MEDS: Propranolol 40 MG TAB PO SCH ×2 (08:54→21:24)
[2020-04-13] MEDS: Folic Acid 1 MG TAB PO SCH (08:54)
[2020-04-13] MEDS: NIFEdipine XL 60 MG TAB PO SCH (08:54)
[2020-04-13] MEDS: Thiamine 100 MG TAB PO SCH (08:54)
[2020-04-13] MEDS: Fluconazole 100 MG TAB PO SCH (08:54)
[2020-04-13] MEDS: Doxycycline 100 MG CAP PO SCH ×2 (08:54→21:24)
--- NOTE | 2020-04-13 12:14 | PRG ---
DATE OF SERVICE: SUBJECTIVE: Hua Mora is doing well today. He is tolerating his diet. He is taking PPIs. He is ambulating without problems. He is waiting on discharge home arrangements as he lives in [place]. OBJECTIVE: LUNGS: Clear to auscultation. CARDIAC: Regular rate and rhythm without murmur or gallop. ABDOMEN: Soft. Surgical wound well healed. ASSESSMENT AND PLAN: At this point, the patient is doing well. He can be discharged home whenever transportation is available. He will need to continue PPIs. Job ID: [id number]
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
[2020-04-13] MEDS: Nicotine 21 MG PATCH TD SCH (17:38)
[2020-04-13] MEDS: Enoxaparin Sodium 40 MG/0.4 ML SYRINGE SC SCH (21:24)
[2020-04-14] MEDS: Doxycycline 100 MG CAP PO SCH ×2 (08:06→20:19)
[2020-04-14] MEDS: NIFEdipine XL 60 MG TAB PO SCH (08:06)
[2020-04-14] MEDS: Fluconazole 100 MG TAB PO SCH (08:06)
[2020-04-14] MEDS: Folic Acid 1 MG TAB PO SCH (08:06)
[2020-04-14] MEDS: Propranolol 40 MG TAB PO SCH ×2 (08:07→20:18)
[2020-04-14] MEDS: Thiamine 100 MG TAB PO SCH (08:07)
[2020-04-14] MEDS: Ziprasidone 20 MG CAP PO SCH ×2 (08:07→20:19)
--- NOTE | 2020-04-14 18:01 | PDOC.HOSPP ---
- Subjective Encounter Date: 04/13/20 Encounter Time: 13:00 Subjective: Mr. Mora was seen today in follow-up of duodenal ulcer with perforation. He does not have any complaints. - Objective Vital Signs & Weight: Vital Signs (12 hours) Temp Pulse Resp BP BP Pulse Ox 04/14/20 11:46 97.9 F 81 16 136/94 H 99 04/14/20 11:39 79 118 H 98 04/14/20 08:06 76 150/88 H 04/14/20 08:00 97 04/14/20 07:36 98.2 F 76 15 150/88 H 97 Weight Weight 140 lb I&O: 04/13/20 04/14/20 04/15/20 06:59 06:59 06:59 Intake Total 1360 3480 Balance 1360 3480 Result Diagrams: 04/12/20 08:28 04/12/20 08:28 Hospitalist ROS - Medication Medications: Active Medications Generic Name Dose Route Start Last Admin Trade Name Freq PRN Reason Stop Dose Admin Doxycycline Hyclate 100 mg 04/11/20 09:00 04/14/20 08:06 Doxycycline 100 Mg Cap PO 100 mg BID MINOR Administration Enoxaparin Sodium 40 mg 04/07/20 21:00 04/13/20 21:24 Enoxaparin Sodium 40 Mg/0.4 Ml Syringe SC 40 mg 2100 MINOR Administration Fluconazole 200 mg 04/11/20 09:00 04/14/20 08:06 Fluconazole 100 Mg Tab PO 200 mg DAILY MINOR Administration Folic Acid 1 mg 04/09/20 09:00 04/14/20 08:06 Folic Acid 1 Mg Tab PO 1 mg DAILY MINOR Administration Hydralazine HCl 10 mg 04/07/20 09:20 04/08/20 17:18 Hydralazine 20 Mg/Ml Vial SLOW IVP 10 mg Q4H PRN Administration SBP > 170 or DBP > 100 Lorazepam 2 mg 04/07/20 09:20 04/08/20 15:51 Lorazepam 2 Mg/Ml Vial SLOW IVP 2 mg Q6H PRN Administration Anxiety/Agitation Nicotine 21 mg 04/09/20 18:00 04/13/20 17:38 Nicotine 21 Mg Patch TD 21 mg 1800 MINOR Administration Nifedipine 60 mg 04/12/20 09:00 04/14/20 08:06 Nifedipine Xl 60 Mg Tab PO 60 mg DAILY MINOR Administration Pantoprazole Sodium 40 mg 04/11/20 09:00 04/14/20 08:07 Pantoprazole 40 Mg Tab PO 40 mg DAILY MINOR Administration Propranolol HCl 40 mg 04/09/20 09:00 04/14/20 08:07 Propranolol 40 Mg Tab PO 40 mg BID MINOR Administration Sodium Chloride 10 ml 04/07/20 09:00 04/14/20 08:07 Flush - Normal Saline 10 Ml Syringe IVF Not Given Q12HR [facility] Thiamine HCl 100 mg 04/09/20 09:00 04/14/20 08:07 Thiamine 100 Mg Tab PO 100 mg DAILY MINOR Administration Ziprasidone 40 mg 04/09/20 09:00 04/14/20 08:07 Ziprasidone 20 Mg Cap PO 40 mg BID MINOR Administration Hospitalist Exam Vitals: Vital Signs (12 hours) Temp Pulse Resp BP BP Pulse Ox 04/14/20 11:46 97.9 F 81 16 136/94 H 99 04/14/20 11:39 79 118 H 98 04/14/20 08:06 76 150/88 H 04/14/20 08:00 97 04/14/20 07:36 98.2 F 76 15 150/88 H 97 Weight Weight 140 lb General Appearance: NAD, awake alert Eye: PERRL, anicteric sclera Heart: RRR, no murmur, no gallops, no rubs, normal peripheral pulses Respiratory: CTAB, no wheezes, no rales, no ronchi, normal chest expansion, no tachypnea Gastrointestinal: soft, non-tender, non-distended, normal bowel sounds, no palpable masses, no hepatomegaly Extremities: no cyanosis, no edema Hosp A/P (1) Duodenal ulcer, perforated Code(s): K26.5 - CHRONIC OR UNSPECIFIED DUODENAL ULCER WITH PERFORATION Status: Acute (2) Polysubstance abuse Code(s): F19.10 - OTHER PSYCHOACTIVE SUBSTANCE ABUSE, UNCOMPLICATED Status: Acute (3) Peritonitis Code(s): K65.9 - PERITONITIS, UNSPECIFIED Status: Acute - Plan * Duodenal ulcer with perforation- he is s/p repair of the ulcer, with Omental patch * Continue Protonix * His diet has been advanced to a solid diet * Peritonitis- he has been transition to oral antibiotics * Polysubstance abuse * Awaiting safe discharge plan
--- NOTE | 2020-04-14 18:04 | PDOC.HOSPP ---
- Subjective Encounter Date: 04/14/20 Encounter Time: 18:03 Subjective: Mr. Mora was seen today in follow-up of duodenal ulcer with perforation. He does not have any complaints. He denies abdominal pain. He is tolerating a solid diet. - Objective Vital Signs & Weight: Vital Signs (12 hours) Temp Pulse Resp BP BP Pulse Ox 04/14/20 11:46 97.9 F 81 16 136/94 H 99 04/14/20 11:39 79 118 H 98 04/14/20 08:06 76 150/88 H 04/14/20 08:00 97 04/14/20 07:36 98.2 F 76 15 150/88 H 97 Weight Weight 140 lb I&O: 04/13/20 04/14/20 04/15/20 06:59 06:59 06:59 Intake Total 1360 3480 Balance 1360 3480 Result Diagrams: 04/12/20 08:28 04/12/20 08:28 Hospitalist ROS - Medication Medications: Active Medications Generic Name Dose Route Start Last Admin Trade Name Carlosq PRN Reason Stop Dose Admin Doxycycline Hyclate 100 mg 04/11/20 09:00 04/14/20 08:06 Doxycycline 100 Mg Cap PO 100 mg BID MINOR Administration Enoxaparin Sodium 40 mg 04/07/20 21:00 04/13/20 21:24 Enoxaparin Sodium 40 Mg/0.4 Ml Syringe SC 40 mg 2100 MINOR Administration Fluconazole 200 mg 04/11/20 09:00 04/14/20 08:06 Fluconazole 100 Mg Tab PO 200 mg DAILY MINOR Administration Folic Acid 1 mg 04/09/20 09:00 04/14/20 08:06 Folic Acid 1 Mg Tab PO 1 mg DAILY MINOR Administration Hydralazine HCl 10 mg 04/07/20 09:20 04/08/20 17:18 Hydralazine 20 Mg/Ml Vial SLOW IVP 10 mg Q4H PRN Administration SBP > 170 or DBP > 100 Lorazepam 2 mg 04/07/20 09:20 04/08/20 15:51 Lorazepam 2 Mg/Ml Vial SLOW IVP 2 mg Q6H PRN Administration Anxiety/Agitation Nicotine 21 mg 04/09/20 18:00 04/13/20 17:38 Nicotine 21 Mg Patch TD 21 mg 1800 MINOR Administration Nifedipine 60 mg 04/12/20 09:00 04/14/20 08:06 Nifedipine Xl 60 Mg Tab PO 60 mg DAILY MINOR Administration Pantoprazole Sodium 40 mg 04/11/20 09:00 04/14/20 08:07 Pantoprazole 40 Mg Tab PO 40 mg DAILY MINOR Administration Propranolol HCl 40 mg 04/09/20 09:00 04/14/20 08:07 Propranolol 40 Mg Tab PO 40 mg BID MINOR Administration Sodium Chloride 10 ml 04/07/20 09:00 04/14/20 08:07 Flush - Normal Saline 10 Ml Syringe IVF Not Given Q12HR MINOR Thiamine HCl 100 mg 04/09/20 09:00 04/14/20 08:07 Thiamine 100 Mg Tab PO 100 mg DAILY MINOR Administration Ziprasidone 40 mg 04/09/20 09:00 04/14/20 08:07 Ziprasidone 20 Mg Cap PO 40 mg BID MINOR Administration Hospitalist Exam Vitals: Vital Signs (12 hours) Temp Pulse Resp BP BP Pulse Ox 04/14/20 11:46 97.9 F 81 16 136/94 H 99 04/14/20 11:39 79 118 H 98 04/14/20 08:06 76 150/88 H 04/14/20 08:00 97 04/14/20 07:36 98.2 F 76 15 150/88 H 97 Weight Weight 140 lb Eye: PERRL, anicteric sclera Heart: RRR, no murmur, no gallops, no rubs, normal peripheral pulses Respiratory: CTAB, no wheezes, no rales, no ronchi, normal chest expansion Gastrointestinal: soft, non-tender, non-distended, normal bowel sounds, no palpable masses, no hepatomegaly Extremities: no cyanosis, no edema Hosp A/P (1) Duodenal ulcer, perforated Code(s): K26.5 - CHRONIC OR UNSPECIFIED DUODENAL ULCER WITH PERFORATION Status: Acute (2) Polysubstance abuse Code(s): F19.10 - OTHER PSYCHOACTIVE SUBSTANCE ABUSE, UNCOMPLICATED Status: Acute (3) Peritonitis Code(s): K65.9 - PERITONITIS, UNSPECIFIED Status: Acute - Plan * Duodenal ulcer with perforation- he is s/p repair of the ulcer, with Omental patch * Continue Protonix * His diet has been advanced to a solid diet * Awaiting safe discharge plan
[2020-04-14] MEDS: Nicotine 21 MG PATCH TD SCH (18:25)
[2020-04-14] MEDS: Enoxaparin Sodium 40 MG/0.4 ML SYRINGE SC SCH (20:18)
--- NOTE | 2020-04-14 21:20 | PRG ---
DATE OF SERVICE: 04/14/2020 SUBJECTIVE: Mr. Mora is postoperative day number 7, following laparotomy and repair of pyloric channel ulcer with a Александр patch. He has had an uneventful postoperative course. He has been on a regular diet for two or three days now, which he is tolerating uneventfully. He denies any pain. He continues to take pantoprazole. He also remains on Geodon and propranolol, which seemed to have controlled his symptoms following his cocaine withdrawal. He has been very pleasant in the hospital and ambulates regularly. PHYSICAL EXAMINATION: VITAL SIGNS: He is afebrile. Vital signs within normal limits. Pulse is 80, blood pressure 136/90. LUNGS: Clear to auscultation. ABDOMEN: Soft, nontender. Incisions healing nicely and peng have been removed. LABORATORY DATA: He has no labs today. His last set of labs was on the and were unremarkable. ASSESSMENT: The patient is stable following his surgery. He has certainly been cleared to be able to be discharged at any time. Unfortunately, he is homeless and lives in [place]. We were told that he has a place to go, but has apparently not had any ride in the hospital, has not been able to provide him with a ride back to [place]. So he will remain in the hospital until he is able to have a ride back to [place] apparently. Job ID: [id number]
[2020-04-15 09:51] LABS: Anion Gap 12 mmol/L (10-20); BUN (Urea Nitrogen) 12 mg/dL (8.4-25.7); Calc. Creatinine Clearance 81 mL/min (70-130); Calcium 8.9 mg/dL (7.8-10.44); Carbon Dioxide 28 mmol/L (22-29); Chloride 99 mmol/L (98-107); Potassium 4.4 mmol/L (3.5-5.1); Sodium 135 mmol/L (136-145)
[2020-04-15] MEDS: Doxycycline 100 MG CAP PO SCH ×2 (09:57→20:38)
[2020-04-15 09:58] LABS: Glucose 56 mg/dL (70-105)
[2020-04-15] MEDS: Ziprasidone 20 MG CAP PO SCH ×2 (09:58→20:39)
[2020-04-15] MEDS: Thiamine 100 MG TAB PO SCH (09:58)
[2020-04-15] MEDS: NIFEdipine XL 60 MG TAB PO SCH (09:59)
[2020-04-15] MEDS: Folic Acid 1 MG TAB PO SCH (09:59)
[2020-04-15] MEDS: Propranolol 10 MG TAB PO SCH ×2 (13:44→20:38)
--- NOTE | 2020-04-15 16:29 | PDOC.HOSPP ---
- Subjective Encounter Date: 04/15/20 Encounter Time: 16:28 Subjective: was seen today in follow-up of duodenal ulcer with perforation. He does not have any new complaints. - Objective Vital Signs & Weight: Vital Signs (12 hours) Temp Pulse Resp BP BP Pulse Ox 04/15/20 10:40 98.4 F 83 14 156/97 H 98 04/15/20 09:59 85 144/84 H 04/15/20 08:53 97.8 F 83 16 144/84 H 99 Weight Weight 140 lb I&O: 04/14/20 04/15/20 04/16/20 06:59 06:59 06:59 Intake Total 3480 3000 0 Balance 3480 3000 0 Result Diagrams: 04/12/20 08:28 04/15/20 09:16 Additional Labs: Accuchecks 04/15/20 10:24 POC Glucose 111 H Hospitalist ROS - Medication Medications: Active Medications Generic Name Dose Route Start Last Admin Trade Name Freq PRN Reason Stop Dose Admin Doxycycline Hyclate 100 mg 04/11/20 09:00 04/15/20 09:57 Doxycycline 100 Mg Cap PO 100 mg BID MINOR Administration Enoxaparin Sodium 40 mg 04/07/20 21:00 04/14/20 20:18 Enoxaparin Sodium 40 Mg/0.4 Ml Syringe SC 40 mg 2100 MINOR Administration Folic Acid 1 mg 04/09/20 09:00 04/15/20 09:59 Folic Acid 1 Mg Tab PO 1 mg DAILY MINOR Administration Hydralazine HCl 10 mg 04/07/20 09:20 04/08/20 17:18 Hydralazine 20 Mg/Ml Vial SLOW IVP 10 mg Q4H PRN Administration SBP > 170 or DBP > 100 Lorazepam 2 mg 04/07/20 09:20 04/08/20 15:51 Lorazepam 2 Mg/Ml Vial SLOW IVP 2 mg Q6H PRN Administration Anxiety/Agitation Nicotine 21 mg 04/09/20 18:00 04/14/20 18:25 Nicotine 21 Mg Patch TD 21 mg 1800 MINOR Administration Nifedipine 60 mg 04/12/20 09:00 04/15/20 09:59 Nifedipine Xl 60 Mg Tab PO 60 mg DAILY MINOR Administration Pantoprazole Sodium 40 mg 04/11/20 09:00 04/15/20 09:58 Pantoprazole 40 Mg Tab PO 40 mg DAILY MINOR Administration Propranolol HCl 20 mg 04/15/20 06:49 04/15/20 13:44 Propranolol 10 Mg Tab PO Not Given BID MINOR Sodium Chloride 10 ml 04/07/20 09:00 04/15/20 13:18 Flush - Normal Saline 10 Ml Syringe IVF Not Given Q12HR MINOR Thiamine HCl 100 mg 04/09/20 09:00 04/15/20 09:58 Thiamine 100 Mg Tab PO 100 mg DAILY MINOR Administration Ziprasidone 20 mg 04/15/20 06:49 04/15/20 09:58 Ziprasidone 20 Mg Cap PO 20 mg BID MINOR Administration Hospitalist Exam Vitals: Vital Signs (12 hours) Temp Pulse Resp BP BP Pulse Ox 04/15/20 10:40 98.4 F 83 14 156/97 H 98 04/15/20 09:59 85 144/84 H 04/15/20 08:53 97.8 F 83 16 144/84 H 99 Weight Weight 140 lb General Appearance: NAD, awake alert Heart: RRR, no murmur, no gallops, no rubs, normal peripheral pulses Respiratory: CTAB, no wheezes, no rales, no ronchi, normal chest expansion, no tachypnea, normal percussion Gastrointestinal: soft, non-tender, non-distended, normal bowel sounds, no palpable masses, no hepatomegaly Extremities: no cyanosis, no edema Hosp A/P (1) Duodenal ulcer, perforated Code(s): K26.5 - CHRONIC OR UNSPECIFIED DUODENAL ULCER WITH PERFORATION Status: Acute (2) Polysubstance abuse Code(s): F19.10 - OTHER PSYCHOACTIVE SUBSTANCE ABUSE, UNCOMPLICATED Status: Acute (3) Peritonitis Code(s): K65.9 - PERITONITIS, UNSPECIFIED Status: Acute - Plan * Duodenal ulcer with perforation- he is s/p repair of the ulcer, with Omental patch * Continue Protonix * Awaiting safe discharge plan
[2020-04-15] MEDS: Nicotine 21 MG PATCH TD SCH (19:18)
[2020-04-15] MEDS: Enoxaparin Sodium 40 MG/0.4 ML SYRINGE SC SCH (20:38)
[2020-04-16] MEDS: Folic Acid 1 MG TAB PO SCH (09:47)
[2020-04-16] MEDS: NIFEdipine XL 60 MG TAB PO SCH (09:47)
[2020-04-16] MEDS: Ziprasidone 20 MG CAP PO SCH (09:47)
[2020-04-16] MEDS: Thiamine 100 MG TAB PO SCH (09:47)
[2020-04-16] MEDS: Doxycycline 100 MG CAP PO SCH (09:47)
[2020-04-16] MEDS: Propranolol 10 MG TAB PO SCH (09:48)
--- NOTE | 2020-04-16 15:48 | PDOC.HOSPP ---
- Subjective Encounter Date: 04/16/20 Encounter Time: 15:46 Subjective: Mr. Mora was seen today in follow-up of duodenal ulcer with perforation. He was noted walking in the halls, making hot chocolate. He is alert and oriented with no complaints. - Objective Vital Signs & Weight: Vital Signs (12 hours) Temp Pulse Resp BP BP Pulse Ox 04/16/20 11:16 98.9 F 73 16 149/93 H 99 04/16/20 09:47 90 04/16/20 07:36 98.1 F 90 16 127/76 98 04/16/20 04:00 97.4 F L 91 19 126/72 96 Weight Admit Weight 140 lb Weight 140 lb I&O: 04/15/20 04/16/20 04/17/20 06:59 06:59 06:59 Intake Total 3000 1670 Balance 3000 1670 Result Diagrams: 04/12/20 08:28 04/15/20 09:16 Hospitalist ROS - Medication Medications: Active Medications Generic Name Dose Route Start Last Admin Trade Name Erika PRN Reason Stop Dose Admin Doxycycline Hyclate 100 mg 04/11/20 09:00 04/16/20 09:47 Doxycycline 100 Mg Cap PO 100 mg BID MINOR Administration Enoxaparin Sodium 40 mg 04/07/20 21:00 04/15/20 20:38 Enoxaparin Sodium 40 Mg/0.4 Ml Syringe SC 40 mg 2100 MINOR Administration Folic Acid 1 mg 04/09/20 09:00 04/16/20 09:47 Folic Acid 1 Mg Tab PO 1 mg DAILY MINOR Administration Hydralazine HCl 10 mg 04/07/20 09:20 04/08/20 17:18 Hydralazine 20 Mg/Ml Vial SLOW IVP 10 mg Q4H PRN Administration SBP > 170 or DBP > 100 Lorazepam 2 mg 04/07/20 09:20 04/08/20 15:51 Lorazepam 2 Mg/Ml Vial SLOW IVP 2 mg Q6H PRN Administration Anxiety/Agitation Nicotine 21 mg 04/09/20 18:00 04/15/20 19:18 Nicotine 21 Mg Patch TD Not Given 1800 MINOR Nifedipine 60 mg 04/12/20 09:00 04/16/20 09:47 Nifedipine Xl 60 Mg Tab PO 60 mg DAILY MINOR Administration Pantoprazole Sodium 40 mg 04/11/20 09:00 04/16/20 09:47 Pantoprazole 40 Mg Tab PO 40 mg DAILY MINOR Administration Propranolol HCl 20 mg 04/15/20 06:49 04/16/20 09:48 Propranolol 10 Mg Tab PO 20 mg BID MINOR Administration Sodium Chloride 10 ml 04/07/20 09:00 04/16/20 09:48 Flush - Normal Saline 10 Ml Syringe IVF Not Given Q12HR MINOR Thiamine HCl 100 mg 04/09/20 09:00 04/16/20 09:47 Thiamine 100 Mg Tab PO 100 mg DAILY MINOR Administration Ziprasidone 20 mg 04/15/20 06:49 04/16/20 09:47 Ziprasidone 20 Mg Cap PO 20 mg BID MINOR Administration Hospitalist Exam Vitals: Vital Signs (12 hours) Temp Pulse Resp BP BP Pulse Ox 04/16/20 11:16 98.9 F 73 16 149/93 H 99 04/16/20 09:47 90 04/16/20 07:36 98.1 F 90 16 127/76 98 04/16/20 04:00 97.4 F L 91 19 126/72 96 Weight Admit Weight 140 lb Weight 140 lb Eye: PERRL, anicteric sclera Heart: RRR, no murmur, no gallops, no rubs, normal peripheral pulses Respiratory: CTAB, no wheezes, no rales, no ronchi, normal chest expansion Gastrointestinal: soft, non-tender, normal bowel sounds Extremities: no cyanosis, no edema Hosp A/P (1) Duodenal ulcer, perforated Code(s): K26.5 - CHRONIC OR UNSPECIFIED DUODENAL ULCER WITH PERFORATION Status: Acute (2) Polysubstance abuse Code(s): F19.10 - OTHER PSYCHOACTIVE SUBSTANCE ABUSE, UNCOMPLICATED Status: Acute (3) Peritonitis Code(s): K65.9 - PERITONITIS, UNSPECIFIED Status: Acute - Plan * Duodenal ulcer with perforation- he is s/p repair of the ulcer, with Omental patch * Continue Protonix * Awaiting safe discharge plan- Hopefully he has a way home today
[2020-04-16 15:50] VITALS: BP 129/79; TEMP 98.1
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
--- NOTE | 2020-04-18 15:15 | EKG ---
Test Reason : Blood Pressure : / mmHG Vent. Rate : 084 BPM Atrial Rate : 084 BPM P-R Int : 134 ms QRS Dur : 092 ms QT Int : 394 ms P-R-T Axes : 063 -05 050 degrees QTc Int : 465 ms Normal sinus rhythm Inferior infarct , age undetermined Abnormal ECG Confirmed by MARILY PALOMARES M.D. ([id number]), payroll and benefits manager AMY DELGADO ([id number]) on 04/18/2020 3:15:19 PM Referred By: Confirmed By:MARILY PALOMARES M.D.
== END 2020-04-16 17:25 | disposition home or self-care (01) | DRG 329 ==
LOC: ERS 04:26 → SDC 06:20 → SURG B 07:41 → SDC 09:20 → SURG B 09:20 → SURG A 04-10 16:49
PROVIDERS: ADMIT Specialist; ATTEND Internal Medicine
PROC: 0DU907Z Supplement Duodenum with Autologous Tissue Substitute, Open Approach (ICD-10-PCS; principal; 2020-04-07)
PROC: HZ2ZZZZ Detoxification Services for Substance Abuse Treatment (ICD-10-PCS; 2020-04-07)
DX: K26.5 Chronic or unspecified duodenal ulcer with perforation (principal); K65.9 Peritonitis, unspecified; F17.210 Nicotine dependence, cigarettes, uncomplicated; F14.10 Cocaine abuse, uncomplicated; F10.10 Alcohol abuse, uncomplicated; Z20.822 Contact with and (suspected) exposure to COVID-19; F12.10 Cannabis abuse, uncomplicated; Z59.0 Homelessness; Z91.19 Patient's noncompliance with other medical treatment and regimen; Z71.51 Drug abuse counseling and surveillance of drug abuser
CPT/HCPCS: 36415; 36416; 80048; 80053; 80061; 80307; 83036; 85025; 86677; 87040; 87070; 87205; 93005; 93306; 94640; 96374; C9113; J0360; J0694; J1100; J1170; J1450; J1650; J2060; J2270; J2370; J2405; J2543; J2550; J2704; J3010; J3480; J3490; J7620; U0002